=== PATIENT | female | born 1985 | race Caucasian/White ===

== ENCOUNTER → 2021-07-01 | Outpatient (CLI) | payer OTHER ==
[~2021-07-01] MED LIST: DOCU100 PO; IBUP600 PO; Milk Of Ma400 MG/5 M PO; PROM25 PO; Percocet 5-3251 EACH PO; SENN187 PO; SIME80CH PO
== END | disposition home or self-care (01) ==
LOC: LAB SHORT 11:14 → PLD 11:14
DX: D22.72 Melanocytic nevi of left lower limb, including hip (principal)
CPT/HCPCS: 88305

== ENCOUNTER → 2022-10-19 | Outpatient (CLI) | payer OTHER | LOC: LAB 11:03 → LAB SHORT 11:03 | DX: R30.0 Dysuria (principal) | CPT/HCPCS: 87086 ==